=== PATIENT | male | born 2000 | race Two or more races ===

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

== ENCOUNTER → 2024-06-02 | Outpatient (REF) | LOC: M EMP 08:50 | PROVIDERS: ATTEND Family Medicine | DX: Z11.52 Encounter for screening for COVID-19 (principal) ==